=== PATIENT | male | born 1955 | race Two or more races ===

== ENCOUNTER 2017-03-27 11:56 | Day surgery (SDC) | payer BC ==
[~2017-03-27] VITALS: Ht 165.1 cm; Wt 98.1 kg
[2017-03-27 13:16] VITALS: Ht 165.1 cm; Wt 98.1 kg
[2017-03-27] MEDS ORDERED: CALC-762 PO (13:31)
[2017-03-27] MEDS ORDERED: BENA40TA41 PO (13:31)
[2017-03-27] MEDS ORDERED: ASPI-664 PO (13:31)
[2017-03-27] MEDS ORDERED: SIMV20TA PO (13:31)
[2017-03-27] MEDS ORDERED: CLON-429 PO (13:31)
[2017-03-27] MEDS ORDERED: MELO7.5O PO (13:31)
[2017-03-27 14:34] VITALS: BP 140/92; PULSE 79; RESP 14
[2017-03-27] MEDS ORDERED: MIDAZOLAM 1 MG/ML 2 ML INJ ONE (15:05)
[2017-03-27] MEDS ORDERED: FENTAnyl 50 MCG/ML VIAL ONE (15:05)
[2017-03-27] MEDS ORDERED: PROPOFOL 20 ML ONE (15:05)
[2017-03-27 16:21] VITALS: BP 140/84; PULSE 69; RESP 16
--- NOTE | 2017-03-28 02:36 | GILP ---
DATE OF PROCEDURE: 03/27/2017 NAME OF PROCEDURE: Colonoscopy with polyp ablation. SURGEON: Frederic Ponce MD PREMEDICATION: Monitored anesthesia care by anesthesiologist. INSTRUMENT USED: Olympus colonoscope. PREPARATION: Adequate. TECHNIQUE: After informed consent, with the patient/relatives understanding the procedure, its nura cations potential risks and complications including but not limited to: allergic reaction, bleeding, perforation, infection, missed lesions and after all pertinent questions were answered to the patie nt's satisfaction, the patient/relatives signed the witnessed informed consent. Following this, premedication was administered slowly IV push by under careful cardiovascular and re spiratory monitoring with pulse oximetry, automatic blood pressure and monitoring and evaluation advisor. Once the sedativ e effect was achieved, the patient was placed in the left lateral decubitus position, digital rectal examination was performed. The colonoscope was then introduced and advanced under visual control th roughout all segments of the colon including: the rectum, sigmoid, descending colon, splenic flexure , transverse colon, hepatic flexure, ascending colon and finally reaching the cecum which was clearl y identified by transillumination, finger indentation and the ileocecal valve. Careful examination o f the mucosa of the lower gastrointestinal tract both on insertion as well as withdrawal of the inst rument disclosed the following findings: Rectal Examination: No evidence of perirectal disease, no masses. Colonic Mucosa: The colonic mucosa is remarkable for a 4 mm polyp in the rectum which was ablated w ith biopsy forceps. Six small polyps ranging in size from 2 to 4 mm were noted in the distal sigmoid colon, and they wer e all ablated with biopsy forceps. The remainder of colonic mucosa is unremarkable. The ileocecal valve was clearly identified and appears unremarkable. The instrument was withdrawn. On withdrawal of the instrument, no additional abnormalities are noted with exception of moderate-sized internal hemorrhoids. The instrument was then withdrawn. The patient tolerated the procedure well and was transferred out of the endoscopy suite awake and in good condition to continue recovery under observation. IMPRESSION: 1. A 4 mm polyp, rectum, ablated. 2. Six small polyps ranging in size from 2 to 4 mm in the distal sigmoid, ablated. 3. Moderate-sized internal hemorrhoids. PLAN: Pathology will be reviewed as soon as available. Further recommendation will depend on the p atient's clinical course. Surveillance colonoscopy in 3 years is recommended given the number of po lyps identified today. Dictated By: FREDERIC PONCE MS/CRISTIAN Conf#: [id number] DID#: [id number]
== END 2017-03-27 18:17 | disposition home or self-care (01) ==
LOC: GIL 11:56
PROVIDERS: ATTEND Internal Medicine Gastroenterology
DX: Z12.11 Encounter for screening for malignant neoplasm of colon (principal); D12.5 Benign neoplasm of sigmoid colon; K62.1 Rectal polyp; K64.8 Other hemorrhoids; I10 Essential (primary) hypertension
CPT/HCPCS: 45380; 88305; J2250; J3010; Z7610

== ENCOUNTER 2018-09-26 09:18 | Emergency (ER) | END 2018-09-26 11:12 | disposition home or self-care (01) ==

== ENCOUNTER 2018-09-27 19:10 | Emergency (ER) | END 2018-09-27 20:00 | disposition home or self-care (01) ==